=== PATIENT | male | born 1985 | race Hispanic/Latino ===

== ENCOUNTER 2017-04-12 10:24 | Emergency (ER) | payer SELFPAY | END 2017-04-12 10:50 | disposition home or self-care (01) | LOC: NAV ERS 10:24 | DX: S29.012A Strain of muscle and tendon of back wall of thorax, initial encounter (principal); F20.0 Paranoid schizophrenia; X50.0XXA Overexertion from strenuous movement or load, initial encounter; Y92.69 Other specified industrial and construction area as the place of occurrence of the external cause; Y99.0 Civilian activity done for income or pay | CPT/HCPCS: 99283 ==